=== PATIENT | male | born 1965 | race Caucasian/White ===

== ENCOUNTER → 2019-09-28 | Outpatient (CLI) | payer BC ==
--- NOTE | 2019-09-29 08:18 | USB ---
Reason for exam: clinical finding. Indicated problem(s): palpable abnormality in the right breast. Physical Findings: Nurse Summary: patient states he has two palpable areas near breast bone, palpated by RN (nurse KATIE). US Breast RT Right complete breast ultrasound includes all four quadrants, the retroareolar region and axilla. Finding demonstrates a 1.1 x 0.4 x 1.0cm isoechoic, lipomatous lesion at mid sternum and a 1.6 x 0.5 x 1.1cm isoechoic, lipomatous lesion at mid sternum. These results were verbally communicated with the patient and result sheet given to the patient on 09/28/19. ASSESSMENT: Benign, BI-RAD 2 RECOMMENDATION: Clinical management of the right breast. Manage patient on a clinical basis. If any clinical interval growth, repeat imaging would be recommended.
== END | disposition home or self-care (01) ==
LOC: RADUSWWP 15:02
PROVIDERS: ATTEND Family Medicine
DX: N63.14 Unspecified lump in the right breast, lower inner quadrant (principal)